=== PATIENT | female | born 1990 | race Hispanic/Latino ===

== ENCOUNTER 2016-05-09 20:19 | Emergency (ER) | payer OTHER ==
[2016-05-09] MEDS ORDERED: NS 1,000 ML IV ONE (20:49)
[2016-05-09] MEDS ORDERED: ZOFRAN IV ONE (20:49)
[2016-05-09 21:22] LABS: MANUAL DIFF NEEDED? NO
[2016-05-09 21:32] LABS: BASO% 0.6 % (0.0-0.8); EOS# 0.15 X1000 (0.0-0.7); EOS% 2.1 % (0.0-10.0); HEMATOCRIT 41.8 % (37.0-47.0); HEMOGLOBIN 14.4 g/dL (12.0-16.0); IMM GRAN# 0.01 X1000 (0.0-0.04); IMM GRAN% 0.1 % (0.0-0.5); LYMPH# 2.56 X1000 (1.2-3.4); LYMPH% 35.7 % (20.5-51.1); MCH 31.2 PG (27-31); MCHC 34.4 g/dL (33-37); MCV 90.5 FL (81-99); MONO# 0.68 X1000 (0.11-0.59); MONO% 9.5 % (1.7-9.3); MPV 10.6 FL (7.4-10.4); PLT 234 X1000 (130-400); RBC 4.62 XMIL (4.2-5.4)
[2016-05-09 21:40] LABS: AGAP 11; ALBUMIN 4.5 g/dL (3.5-5.0); ALKALINE PHOSPHATASE 69 U/L (32-104); AMYLASE 50 U/L (20-200); BUN 13 mg/dL (8-22); CALCIUM 9.2 mg/dL (8.8-10.2); CHLORIDE 103 mmol/L (98-107); COSMO 278; GOT 15 U/L (10-30); GPT 13 U/L (10-36); LIPASE 39 U/L (13-60); POTASSIUM 3.5 mmol/L (3.5-5.1); SODIUM 139 mmol/L (136-145); TCO2 25 mmol/L (25-35); TOTAL PROTEIN 7.4 g/dL (6.3-8.3)
--- NOTE | 2016-05-09 21:41 | PROVIDER DOCUMENTATION ---
HPI-General Adult - General Chief Complaint: Epigastric Pain Stated Complaint: CHEST PAIN Time Seen by Provider: 05/09/16 20:47 Source: patient Allergies/Adverse Reactions: Patient Allergies Allergy/AdvReac Type Severity Reaction Status Date / Time No Known Allergies Allergy Verified 05/09/16 20:31 Home Medications: Home Medication List Medication Instructions Recorded Confirmed Last Taken Type Omeprazole 20 mg PO DAILY #20 tablet. 05/10/16 Unknown Rx - History of Present Illness -Gen Adult Nature of Presenting Problems: Pt. is 26 yof that presents with c/o epigastric pain that began about a week ago. Pt. reports some N/V. Pt. states it gets worse after she eats. Pt. denies any other symptoms and states her last BM was yesterday and she is currently on her period. Location of Pain/Injury: reports: chest. denies: head, face, mouth, neck, upper extremity, hand(s), abdomen, back, pelvis, genitalia, lower extremity, feet, upper body, lower body, generalized Pain Radiation: reports: epigastric Quality of Pain: reports: aching, burning. denies: cramping, dull, fullness, indigestion, pressure, sharp, stabbing, tearing, throbbing, tightness Severity: reports: mild. denies: moderate, severe Onset/Duration: reports: gradual, 1 week ago Timing: reports: still present. denies: improving, gone now, resolved prior to arrival, intermittent, constant, changing over time, getting worse Context/Activities at Onset: reports: none. denies: recent emotional stress, recent physical stress, recent trauma history, possible bad food, cold exposure , out of country travel Modifying Factors: improves with: nothing Associated Symptoms: reports: heartburn, nausea, vomiting. denies: anxiety, arm pain, back/neck pain, chest pain, constipation, cough, diaphoresis, diarrhea , dizziness, EENT symptoms, fatigue, fever/chills, genitourinary problems, headaches, joint pain, loss of appetite, malaise, muscle aches, sinus congestion /drainage, rash, seizure, shortness of breath, sensory/motor loss, pain with inspiration, swelling/mass in abdomen, syncope, weakness, trouble walking Similar Symptoms Previously?: Yes Recently seen or treated by another doctor?: No Review of Systems - Adult - REVIEW OF SYSTEMS - ADULT Constitutional: reports: see HPI. denies: chills, fever, fatique Eyes: reports: see HPI. denies: discharge, blurred vision, double vision Ears, Nose, Mouth & Throat: reports: see HPI. denies: ear pain, hearing loss, nose pain, loose teeth, mouth/dental pain, throat pain, throat swelling Cardiovascular: reports: see HPI. denies: chest pain, irregular heart rate, palpitations, syncope Respiratory: reports: see HPI. denies: chronic cough, cough, dyspnea on exertion, pleurisy, shortness of breath, wheezing Gastrointestinal: reports: see HPI, abdominal pain, frequent heartburn, nausea, vomiting. denies: hematemesis, difficulty swallowing Genitourinary: reports: see HPI. denies: dysuria, discharge, hematuria, hesitency, urgency Musculoskeletal: reports: see HPI. denies: bone pain, back pain, joint pain, joint swelling, muscle aches, neck pain Integumentary: reports: see HPI. denies: hives, itching, rash, skin thickening Neurological: reports: see HPI. denies: ataxia, headache/migraines, numbness, paresthesia, seizure, tremors Psychiatric: reports: see HPI. denies: anxiety, depression, emotional problems , insomnia, panic attacks, suicidal thoughts Past History - Adult - PAST MEDICAL HISTORY-ADULT Review of Records: reports: Old Records Reviewed, Nursing Assessment Review, Medications Reviewed, Social history reviewed & non-contributory. - IMMUNIZATION STATUS Childhood Immunizations: See Nurse Assessment Flu Vaccine: See Nurse Assessment - FAMILY HISTORY Family History: reviewed, not pertinent - SOCIAL HISTORY Smoking: non-smoker Physical Exam-General - PHYSICAL EXAM-ADULT Initial Vital Signs Reviewed: Yes - CONSTITUTIONAL General Appearance: alert, no apparent distress, thin. negative: obese, anxious , lethargic, slow to respond, obtunded, combative - EYES Eyes: PERRL/EOMI, pink conjunctivae. negative: conjuctival exudate, scleral icterus, subconjunctival hemorrhage - HEAD, EARS, NOSE, MOUTH & THROAT HENMT: normocephalic/atraumatic, moist mucous membranes. negative: angioedema, frontal tenderness, maxillary tenderness - NECK Neck: non-tender, full range of motion, supple, normal inspection. negative: lymphadenopathy, trachial deviation, thyromegaly - RESPIRATORY Respiratory: lungs clear, normal breath sounds. negative: crackles, rales, rhonchi, stridor, wheezing - CARDIOVASCULAR Cardiovascular: normal peripheral pulses, regular rate, rhythm, no edema, no JVD , no murmur. negative: extra beats, friction rub, irregularly irregular - CHEST (BREASTS) Chest/Breast: deferred - GASTROINTESTINAL (ABDOMEN) Abdominal Exam: normal bowel sounds, non tender, soft. negative: distended, guarding, rigid, rebound, tenderness, hernia, mass - GENITOURINARY Female Genitalia/Pelvic Exam: deferred Rectal Exam: deferred Hemoccult Exam: deferred - LYMPHATIC Lymphatic: no adenopathy. negative: axilla node tender, cervical node tenderness - MUSCULOSKELETAL Back Exam: normal inspection, no CVA tenderness, no vertebral tenderness. negative: ecchymosis, swelling, vertebral tenderness Extremity: normal range of motion, non-tender, normal gait, normal inspection. negative: deformity, erythema, inflammation, swelling, tenderness Peripheral Pulses: radial (R): 2+, radial (L): 2+ - SKIN Integumentary: normal color, normal turgor, warm/dry. negative: cyanosis, diaphoresis, ecchymosis, erythema, jaundice, mottled, pallor, petechiae, purpura , rash, swelling, tenderness - NEUROLOGIC Neurologic: grossly normal, no motor/sensory deficits. negative: abnormal gait , aphasia, facial droop, focal weakness, motor weakness, sensory deficit - PSYCHIATRIC Psych/Mental Status: normal mood/affect, normal thought content, normal thought process, oriented x 3. negative: anxious, paranoid, tearful Progress - PLAN OF CARE/RESULTS Progress/Plan/Lab Results: Discussed results and plan of care with patient. Patient agrees with plan and verbalizes understanding. Vital Signs Temp Pulse Resp BP Pulse Ox 05/09/16 23:47 97.2 F L 68 16 98/63 98 05/09/16 20:26 98 F 76 18 117/68 99 No Known Allergies Allergy (Verified 05/09/16 20:31) No Home Medications 05/09/16 Laboratory 05/09/16 05/09/16 05/09/16 21:00 21:00 21:00 WBC 7.18 RBC 4.62 Hgb 14.4 Hct 41.8 MCV 90.5 MCH 31.2 H MCHC 34.4 RDW Std Deviation 12.7 Plt Count 234 MPV 10.6 H Immature Gran % (Auto) 0.1 Neut % (Auto) 52.0 Lymph % (Auto) 35.7 [place] % (Auto) 9.5 H Eos % (Auto) 2.1 Baso % (Auto) 0.6 Immature Gran # (Auto) 0.01 Neut # (Auto) 3.74 Lymph # (Auto) 2.56 [place] # (Auto) 0.68 H Eos # (Auto) 0.15 Baso # (Auto) 0.04 Sodium 139 Potassium 3.5 Chloride 103 Carbon Dioxide 25 Anion Gap 11 BUN 13 Creatinine 0.5 Estimated GFR/1.73 m2 > 60 BUN/Creatinine Ratio 26 Glucose 96 Calculated Osmolality 278 Calcium 9.2 Total Bilirubin 0.60 AST 15 ALT 13 Alkaline Phosphatase 69 Troponin T < 0.010 Total Protein 7.4 Albumin 4.5 Globulin 3.0 Albumin/Globulin Ratio 2.0 Amylase 50 Lipase 39 Urine Source Urine Color Urine Clarity Urine pH Ur Specific [place] Urine Protein Urine Ketones Urine Blood Urine Nitrite Urine Bilirubin Urine Urobilinogen Urine Microscopic RBC Urine WBC Urine Microscopic WBC Ur Epithelial Cells Urine Bacteria Urine Glucose Urine Test 05/09/16 05/09/16 20:55 20:55 WBC RBC Hgb Hct MCV MCH MCHC RDW Std Deviation Plt Count MPV Immature Gran % (Auto) Neut % (Auto) Lymph % (Auto) [place] % (Auto) Eos % (Auto) Baso % (Auto) Immature Gran # (Auto) Neut # (Auto) Lymph # (Auto) [place] # (Auto) Eos # (Auto) Baso # (Auto) Sodium Potassium Chloride Carbon Dioxide Anion Gap BUN Creatinine Estimated GFR/1.73 m2 BUN/Creatinine Ratio Glucose Calculated Osmolality Calcium Total Bilirubin AST ALT Alkaline Phosphatase Troponin T Total Protein Albumin Globulin Albumin/Globulin Ratio Amylase Lipase Urine Source CLEAN CATCH Urine Color YELLOW Urine Clarity CLEAR Urine pH 6.5 Ur Specific [place] 1.020 Urine Protein NEGATIVE Urine Ketones NEGATIVE Urine Blood 2+ A Urine Nitrite NEGATIVE Urine Bilirubin NEGATIVE Urine Urobilinogen NORMAL Urine Microscopic RBC <10 Urine WBC TRACE A Urine Microscopic WBC <10 Ur Epithelial Cells <10 Urine Bacteria 4+ Urine Glucose NEGATIVE Urine Test NEGATIVE Orders Category Date Time Status Saline Loc NOW Care 05/09/16 20:48 Active AMYLASE [CHEM] Stat Lab 05/09/16 21:00 Completed CBC WITH ELECTRONIC DIFF [HEME] Stat Lab 05/09/16 21:00 Completed COMPREHENSIVE METABOLIC PANEL [CHEM] Stat Lab 05/09/16 21:00 Completed LIPASE [CHEM] Stat Lab 05/09/16 21:00 Completed TEST-URINE [PREG] Stat Lab 05/09/16 20:55 Completed TROPONIN T Stat Lab 05/09/16 21:[address] W/POSS RFLX CULT [URINALYSIS] Stat Lab 05/09/16 20:55 Completed URINE CULTURE [RM] Routine Lab 05/09/16 23:11 Ordered 0.9% Sodium Chloride Inj [Ns] 1,000 ml Med 05/09/16 20:49 Discontinued IV 999 mls/hr Lido/Simpson Alk/Al&mg Hydrox [G.i. Cocktail] Med 05/09/16 23:58 Discontinued 30 ml PO NOW ONE Ondansetron [Zofran] Med 05/09/16 20:49 Discontinued 4 mg IV NOW ONE Pantoprazole [Protonix] Med 05/09/16 23:58 Discontinued 40 mg IV NOW ONE Sodium Chloride 0.9% Med 05/09/16 23:58 Discontinued 10 ml INJ NOW ONE Laboratory Tests 05/09/16 05/09/16 05/09/16 20:55 20:55 21:00 WBC RBC Hgb Hct MCV MCH MCHC RDW Std Deviation Plt Count MPV Immature Gran % (Auto) Neut % (Auto) Lymph % (Auto) [place] % (Auto) Eos % (Auto) Baso % (Auto) Immature Gran # (Auto) Neut # (Auto) Lymph # (Auto) [place] # (Auto) Eos # (Auto) Baso # (Auto) Sodium 139 Potassium 3.5 Chloride 103 Carbon Dioxide 25 Anion Gap 11 BUN 13 Creatinine 0.5 Estimated GFR/1.73 m2 > 60 BUN/Creatinine Ratio 26 Glucose 96 Calculated Osmolality 278 Calcium 9.2 Total Bilirubin 0.60 AST 15 ALT 13 Alkaline Phosphatase 69 Troponin T Total Protein 7.4 Albumin 4.5 Globulin 3.0 Albumin/Globulin Ratio 2.0 Amylase 50 Lipase 39 Urine Source CLEAN CATCH Urine Color YELLOW Urine Clarity CLEAR Urine pH 6.5 Ur Specific [place] 1.020 Urine Protein NEGATIVE Urine Ketones NEGATIVE Urine Blood 2+ A Urine Nitrite NEGATIVE Urine Bilirubin NEGATIVE Urine Urobilinogen NORMAL Urine Microscopic RBC <10 Urine WBC TRACE A Urine Microscopic WBC <10 Ur Epithelial Cells <10 Urine Bacteria 4+ Urine Glucose NEGATIVE Urine Test NEGATIVE 05/09/16 05/09/16 21:00 21:00 WBC 7.18 RBC 4.62 Hgb 14.4 Hct 41.8 MCV 90.5 MCH 31.2 H MCHC 34.4 RDW Std Deviation 12.7 Plt Count 234 MPV 10.6 H Immature Gran % (Auto) 0.1 Neut % (Auto) 52.0 Lymph % (Auto) 35.7 [place] % (Auto) 9.5 H Eos % (Auto) 2.1 Baso % (Auto) 0.6 Immature Gran # (Auto) 0.01 Neut # (Auto) 3.74 Lymph # (Auto) 2.56 [place] # (Auto) 0.68 H Eos # (Auto) 0.15 Baso # (Auto) 0.04 Sodium Potassium Chloride Carbon Dioxide Anion Gap BUN Creatinine Estimated GFR/1.73 m2 BUN/Creatinine Ratio Glucose Calculated Osmolality Calcium Total Bilirubin AST ALT Alkaline Phosphatase Troponin T < 0.010 Total Protein Albumin Globulin Albumin/Globulin Ratio Amylase Lipase Urine Source Urine Color Urine Clarity Urine pH Ur Specific [place] Urine Protein Urine Ketones Urine Blood Urine Nitrite Urine Bilirubin Urine Urobilinogen Urine Microscopic RBC Urine WBC Urine Microscopic WBC Ur Epithelial Cells Urine Bacteria Urine Glucose Urine Test Departure - Departure Time of Disposition Order: 23:59 DIAGNOSIS: GERD (gastroesophageal reflux disease) Qualifiers: Esophagitis presence: without esophagitis Qualified Code(s): K21.9 - Gastro- esophageal reflux disease without esophagitis Disposition: HOME 01 Certified Medical Emergency: Emergent Condition: Stable Additional Instructions: Follow up with primary care physician Take medications as directed Return to ED for any concerns or worsening of symptoms ED Follow Up Instructions: You have been treated by a care provider in the Emergency Department. These instructions are being provided to you so you can have an understanding of how to care for yourself upon discharge. Upon discharge from the Emergency Department, you are responsible for making arrangements for follow-up care by a physician of your choice. Take all prescribed medications as directed. Return to the Emergency Department immediately for any new or worsening symptoms. You may call the Physician Referral phone number at [phone] to obtain a list of Physicians who are taking new patients. Prescriptions: Omeprazole 20 mg PO DAILY #20 tablet.dr Sexton - Physician/ [facility] Attestation Patient care was provided by Advanced Practice Provider:: Yes Advanced Practice Provider:: Ryan Barnes Advanced Practice Provider documentation review:: The Mid-level provider documentation, treatment plan and medical decision making was reviewed by the physician who agrees with all treatment and medical decision making by the MLP.
[2016-05-09 22:31] LABS: URINE SOURCE CLEAN CATCH
[2016-05-09 22:59] LABS: BILIRUBIN URINE NEGATIVE (NEGATIVE); BLOOD URINE 2+ (NEGATIVE); CLARITY CLEAR (CLEAR); COLOR YELLOW; GLUCOSE URINE NEGATIVE (NEGATIVE); LEUKOCYTES URINE TRACE (NEGATIVE); NITRITE URINE NEGATIVE (NEGATIVE); PH URINE 6.5; PROTEIN URINE NEGATIVE (NEGATIVE); UROBILINOGEN URINE NORMAL
[2016-05-09 23:11] LABS: URINE CULTURE PL NEEDED? YES; URINE EPITHELIAL CELLS <10 /HPF (<10); URINE RBC <10 /HPF (<10); URINE WBC <10 /HPF (<10)
[2016-05-09 23:49] VITALS: BP 98/63
[2016-05-09] MEDS ORDERED: PROTONIX IV ONE (23:58)
[2016-05-09] MEDS ORDERED: G.I. COCKTAIL PO ONE (23:58)
[2016-05-09] MEDS ORDERED: SODIUM CHLORIDE 0.9% INJ ONE (23:58)
[2016-05-10] MEDS ORDERED: PRILOSEC PO ONE (00:02)
== END 2016-05-10 00:17 | disposition home or self-care (01) ==
LOC: EDBD 20:19 → P.ED 20:19
DX: K21.9 Gastro-esophageal reflux disease without esophagitis (principal); R10.13 Epigastric pain; R11.2 Nausea with vomiting, unspecified; R07.9 Chest pain, unspecified; R12 Heartburn
CPT/HCPCS: 80053; 81001; 81025; 82150; 83690; 84484; 85025; 87088; 96361; 96374; J2405; J7030